=== PATIENT | male | born 1975 | race Caucasian/White ===

== ENCOUNTER 2020-09-02 18:50 | Emergency (ER) | payer BC, OTHER ==
--- NOTE | 2020-09-02 19:19 | ERPHSYRPT ---
- History of Present Illness Time Seen by Provider: 09/02/20 19:10 Source: patient Exam Limitations: no limitations Patient Subjective Stated Complaint: here for fever, cough, vomiting,aches Triage Nursing Assessment: pt alert , resp easy, skin w/d/p, face mask in place, Physician History: This is a 44-year-old white male with history of hypertension who presents with 1 day history of cough, body aches, vomiting symptoms. Symptoms are not improved. Patient denies shortness of breath and he denies chest pain. He is never been COVID-19 tested and has not been vaccinated. Timing/Duration: yesterday Cough Quality/Degree: mild, dry cough Possible Cause: no prior episodes Modifying Factors: Improves With: activity, coughing Associated Symptoms: cough, sore throat, No shortness of breath Allergies/Adverse Reactions: No Known Drug Allergies Allergy (Unverified 09/02/20 19:11) Home Medications: Atenolol/Chlorthalidone [Atenolol-Chlorthalidone 50-25] 1 ea DAILY 09/02/20 [History] Hx Influenza Vaccination/Date Given: No Hx Pneumococcal Vaccination/Date Given: No Immunizations Up to Date: Yes Travel Risk - International Travel Have you traveled outside of the country in past 3 weeks: No - Coronavirus Screening Are you exhibiting any of the following symptoms?: Yes Symptoms: Fever, Cough: New Onset, Shortness of Breath, Vomiting/Diarrhea, Headaches/Body Aches/Fatigue Close contact with a COVID-19 positive Pt in past 14-21 Days: No - Vaccine Status Have you recieved a Covid-19 vaccination: No - Review of Systems Constitutional: No Symptoms Eyes: No Symptoms Ears, Nose, & Throat: Throat Pain Respiratory: Cough, No Dyspnea Cardiac: No Chest Pain Abdominal/Gastrointestinal: Nausea, Vomiting, No Constipation Genitourinary Symptoms: No Symptoms Musculoskeletal: Arthralgias, Myalgias Skin: No Symptoms Neurological: No Symptoms Psychological: No Symptoms Endocrine: No Symptoms Hematologic/Lymphatic: No Symptoms Immunological/Allergic: No Symptoms All Other Systems: Reviewed and Negative - Past Medical History Pertinent Past Medical History: Yes Cardiac History: Hypertension Endocrine Medical History: Diabetes Type II - Past Surgical History Past Surgical History: Yes Other Surgical History: back - Social History Smoking Status: Current every day smoker Exposure to second hand smoke: Yes Drug Use: none Patient Lives Alone: No - Nursing Vital Signs Nursing Vital Signs: Initial Vital Signs Pulse Rate 77 09/02/20 19:07 Respiratory Rate 16 09/02/20 19:07 Blood Pressure 134/90 09/02/20 19:07 O2 Sat by Pulse Oximetry 98 09/02/20 19:07 Pain Scale Pain Intensity 3 - Physical Exam General Appearance: no apparent distress, alert, anxiety Eye Exam: PERRL/EOMI, eyes nml inspection Ears, Nose, Throat Exam: normal ENT inspection, TM abnormal (L) Neck Exam: normal inspection, non-tender, supple, full range of motion Respiratory Exam: normal breath sounds, lungs clear, airway intact, No chest tenderness, No respiratory distress Cardiovascular Exam: regular rate/rhythm, normal heart sounds, normal peripheral pulses Gastrointestinal/Abdomen Exam: soft, normal bowel sounds, No tenderness Rectal Exam: not done Back Exam: normal inspection, normal range of motion, vertebral tenderness, No CVA tenderness Extremity Exam: normal inspection, normal range of motion, No pelvis stable Neurologic Exam: alert, oriented x 3, cooperative, 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 No comparison EKG available) Ordered Tests: Active Orders 24 hr Category Date Time Status EKG-ER Only STAT Care 09/02/20 19:22 Active IV Insertion STAT Care 09/02/20 19:22 Active Isolation, Initiate & Maintain STAT Care 09/02/20 19:23 Active Pulse Oximetry (ED) STAT Care 09/02/20 19:22 Active CHEST 1 VIEW (PORTABLE) Stat Exams 09/02/20 19:22 Taken CHEST WITH CONTRAST [CT] Stat Exams 09/02/20 20:45 Taken BLOOD CULTURE Stat Lab 09/02/20 19:32 Received CBC W DIFF Stat Lab 09/02/20 19:30 Completed CMP Stat Lab 09/02/20 19:30 Completed D-DIMER QUANTITATIVE Stat Lab 09/02/20 19:30 Completed Ferritin Stat Lab 09/02/20 19:30 Completed INFLUENZA A+B ADDI Stat Lab 09/02/20 19:30 Completed LDH-LACTATE DEHYDROGENASE Stat Lab 09/02/20 19:30 Completed Lactic Acid Stat Lab 09/02/20 19:45 Completed Mccone Screen Stat Lab 09/02/20 19:30 Completed UA W/RFX UR CULTURE Stat Lab 09/02/20 19:22 Ordered Medication Summary Generic Name Dose Route Start Last Admin Trade Name Freq PRN Reason Stop Dose Admin Sodium Chloride 1,000 mls @ 999 mls/hr 09/02/20 20:58 09/02/20 21:25 Sodium Chloride 0.9% 1000 Ml IV 09/02/20 21:58 999 mls/hr .Q1H1M STA Administration Discontinued Medications Generic Name Dose Route Start Last Admin Trade Name Freq PRN Reason Stop Dose Admin Sodium Chloride 1,000 mls @ 999 mls/hr 09/02/20 19:22 09/02/20 20:58 Sodium Chloride 0.9% 1000 Ml IV 09/02/20 20:22 Infused .Q1H1M STA Infusion Sodium Chloride Confirm 09/02/20 19:45 Sodium Chloride 0.9% 1000 Ml Administered 09/02/20 19:46 Dose 1,000 mls @ ud .ROUTE .STK-MED ONE Sodium Chloride Confirm 09/02/20 21:23 Sodium Chloride 0.9% 1000 Ml Administered 09/02/20 21:24 Dose 1,000 mls @ ud .ROUTE .STK-MED ONE Ondansetron HCl 4 mg 09/02/20 19:22 09/02/20 19:46 Zofran 4 Mg/2 Ml Vial IV 09/02/20 19:23 4 mg STAT STA Administration Ondansetron HCl Confirm 09/02/20 19:45 Zofran 4 Mg/2 Ml Vial Administered 09/02/20 19:46 Dose 4 mg .ROUTE .STK-MED ONE Lab/Rad Data: Laboratory Result Diagrams 09/02/20 19:30 09/02/20 19:30 Laboratory Results 09/02/20 09/02/20 09/02/20 Range/Units 19:45 19:30 19:30 WBC (4.0-10.5) K/mm3 RBC (4.1-5.6) M/mm3 Hgb (12.5-18.0) gm/dl Hct (42-50) % MCV (78-100) fl MCH (26-32) pg MCHC (32-36) g/dl RDW (11.5-14.0) % Plt Count (150-450) K/mm3 MPV (7.5-11.0) fl Gran % (36.0-66.0) % Eos # (Auto) (0-0.5) Absolute Lymphs (auto) (1.0-4.6) Absolute Monos (auto) (0.0-1.3) Lymphocytes % (24.0-44.0) % Monocytes % (0.0-12.0) % Eosinophils % (0.00-5.0) % Basophils % (0.0-0.4) % Absolute Granulocytes (1.4-6.9) Basophils # (0-0.4) D-Dimer 1165 H* (215-500) ng/mL Sodium (137-145) mmol/L Potassium (3.5-5.1) mmol/L Chloride (98-107) mmol/L Carbon Dioxide (22-30) mmol/L Anion Gap (5-15) MEQ/L BUN (9-20) mg/dL Creatinine (0.66-1.25) mg/dL Estimated GFR ML/MIN Glucose (74-106) mg/dL Lactic Acid 1.6 (0.4-2.0) Calcium (8.4-10.2) mg/dL Ferritin (17.9-464) ng/mL Total Bilirubin (0.2-1.3) mg/dL AST (17-59) U/L ALT (0-50) U/L Alkaline Phosphatase (38-126) U/L Lactate Dehydrogenase (120-246) U/L Serum Total Protein (6.3-8.2) g/dL Albumin (3.5-5.0) g/dL Monoscreen POSITIVE (Negative) Influenza Type A Ag (NEGATIVE) Influenza Type B Ag (NEGATIVE) Group A Strep Antibody (NEGATIVE) Slides for Path Review 09/02/20 09/02/20 09/02/20 Range/Units 19:30 19:30 19:30 WBC 12.7 H (4.0-10.5) K/mm3 RBC 5.71 H (4.1-5.6) M/mm3 Hgb 17.1 (12.5-18.0) gm/dl Hct 50.5 H (42-50) % MCV 88.4 (78-100) fl MCH 29.9 (26-32) pg MCHC 33.9 (32-36) g/dl RDW 13.3 (11.5-14.0) % Plt Count 197 (150-450) K/mm3 MPV 11.6 H (7.5-11.0) fl Gran % 90.5 H (36.0-66.0) % Eos # (Auto) 0.10 (0-0.5) Absolute Lymphs (auto) 0.53 L (1.0-4.6) Absolute Monos (auto) 0.54 (0.0-1.3) Lymphocytes % 4.2 L (24.0-44.0) % Monocytes % 4.3 (0.0-12.0) % Eosinophils % 0.8 (0.00-5.0) % Basophils % 0.2 (0.0-0.4) % Absolute Granulocytes 11.50 H (1.4-6.9) Basophils # 0.02 (0-0.4) D-Dimer (215-500) ng/mL Sodium 132 L (137-145) mmol/L Potassium 3.4 L (3.5-5.1) mmol/L Chloride 93 L (98-107) mmol/L Carbon Dioxide 31 H (22-30) mmol/L Anion Gap 12.1 (5-15) MEQ/L BUN 19 (9-20) mg/dL Creatinine 0.77 (0.66-1.25) mg/dL Estimated GFR > 60.0 ML/MIN Glucose 375 H (74-106) mg/dL Lactic Acid (0.4-2.0) Calcium 9.1 (8.4-10.2) mg/dL Ferritin 106 (17.9-464) ng/mL Total Bilirubin 0.90 (0.2-1.3) mg/dL AST 19 (17-59) U/L ALT 24 (0-50) U/L Alkaline Phosphatase 107 (38-126) U/L Lactate Dehydrogenase 113 L (120-246) U/L Serum Total Protein 6.5 (6.3-8.2) g/dL Albumin 3.9 (3.5-5.0) g/dL Monoscreen (Negative) Influenza Type A Ag (NEGATIVE) Influenza Type B Ag (NEGATIVE) Group A Strep Antibody NOT DETECTED (NEGATIVE) Slides for Path Review YES 09/02/20 Range/Units 19:30 WBC (4.0-10.5) K/mm3 RBC (4.1-5.6) M/mm3 Hgb (12.5-18.0) gm/dl Hct (42-50) % MCV (78-100) fl MCH (26-32) pg MCHC (32-36) g/dl RDW (11.5-14.0) % Plt Count (150-450) K/mm3 MPV (7.5-11.0) fl Gran % (36.0-66.0) % Eos # (Auto) (0-0.5) Absolute Lymphs (auto) (1.0-4.6) Absolute Monos (auto) (0.0-1.3) Lymphocytes % (24.0-44.0) % Monocytes % (0.0-12.0) % Eosinophils % (0.00-5.0) % Basophils % (0.0-0.4) % Absolute Granulocytes (1.4-6.9) Basophils # (0-0.4) D-Dimer (215-500) ng/mL Sodium (137-145) mmol/L Potassium (3.5-5.1) mmol/L Chloride (98-107) mmol/L Carbon Dioxide (22-30) mmol/L Anion Gap (5-15) MEQ/L BUN (9-20) mg/dL Creatinine (0.66-1.25) mg/dL Estimated GFR ML/MIN Glucose (74-106) mg/dL Lactic Acid (0.4-2.0) Calcium (8.4-10.2) mg/dL Ferritin (17.9-464) ng/mL Total Bilirubin (0.2-1.3) mg/dL AST (17-59) U/L ALT (0-50) U/L Alkaline Phosphatase (38-126) U/L Lactate Dehydrogenase (120-246) U/L Serum Total Protein (6.3-8.2) g/dL Albumin (3.5-5.0) g/dL Monoscreen (Negative) Influenza Type A Ag NEGATIVE (NEGATIVE) Influenza Type B Ag NEGATIVE (NEGATIVE) Group A Strep Antibody (NEGATIVE) Slides for Path Review - Progress Progress: improved, re-examined Air Movement: good Progress Note: 09/02/20 21:04 Chest x-ray shows no acute cardiopulmonary process. Clinically, patient states that he is slowly improving. He states that if at all possible he would like to go home. 09/02/20 21:55 CAT scan of the chest with contrast shows no pulmonary embolism. There is no acute cardiopulmonary findings. There is some distal esophageal wall thickening. Blood Culture(s) Obtained: Yes Counseled pt/family regarding: lab results, diagnosis, need for follow-up, rad results - Departure Departure Disposition: Home Clinical Impression: Vomiting, Mononucleosis, Esophagitis Condition: Stable Critical Care Time: No Referrals: JEANCARLOS MENARD [Primary Care Provider] - Additional Instructions: Drink plenty of fluids. Avoid fatty greasy spicy foods. Quarantine yourself until you get the results of your COVID-19 test back. Follow-up with your primary care physician to further evaluate your distal esophagus thickening. Take your medications as prescribed. Prescriptions: Ondansetron ODT 4 MG [Zofran Odt 4 mg] 4 mg PO Q6H PRN PRN #10 tab.rapdis PRN Reason: Vomiting Pantoprazole 20 mg [Protonix 20MG Tablet] 20 mg PO DAILY #10 tab
[2020-09-02] MEDS ORDERED: Zofran 4 MG/2 ML VIAL IV STA (19:22)
[2020-09-02] MEDS ORDERED: Sodium Chloride 0.9% 1000 ML 1,000 ML IV STA ×2 (19:22→20:58)
[2020-09-02 19:40] LABS: BASOPHIL % 0.2 % (0.0-0.4); Basophil (Absolute #) 0.02 (0-0.4); Eosinophil % 0.8 % (0.00-5.0); Hematocrit 50.5 % (42-50); Hemoglobin 17.1 gm/dl (12.5-18.0); Lymphocyte (Absolute #) 0.53 (1.0-4.6); Lymphocytes % 4.2 % (24.0-44.0); Mean Cell Volume 88.4 fl (78-100); Mean Corpuscular Hemoglobin 29.9 pg (26-32); Mean Corpuscular Hgb Concent. 33.9 g/dl (32-36); Mean Platelet Volume 11.6 fl (7.5-11.0); Monocyte (Absolute #) 0.54 (0.0-1.3); Monocytes % 4.3 % (0.0-12.0); Neutrophil % 90.5 % (36.0-66.0); Platelet Count 197 K/mm3 (150-450); Red Blood Count 5.71 M/mm3 (4.1-5.6); Red Cell Distribution Width 13.3 % (11.5-14.0); White Blood Count 12.7 K/mm3 (4.0-10.5)
[2020-09-02] MEDS ORDERED: Sodium Chloride 0.9% 1000 ML 1,000 ML ONE ×2 (19:45→21:23)
[2020-09-02] MEDS ORDERED: Zofran 4 MG/2 ML VIAL ONE (19:45)
[2020-09-02 19:59] LABS: INFLUENZA A NEGATIVE (NEGATIVE); INFLUENZA B NEGATIVE (NEGATIVE)
[2020-09-02 20:17] LABS: Slide Review 1 YES
[2020-09-02 20:28] LABS: ALBUMIN 3.9 g/dL (3.5-5.0); ALKALINE PHOSPHATASE 107 U/L (38-126); ANION GAP 12.1 MEQ/L (5-15); BLOOD UREA NITROGEN 19 mg/dL (9-20); CHLORIDE 93 mmol/L (98-107); Calcium 9.1 mg/dL (8.4-10.2); Carbon Dioxide 31 mmol/L (22-30); Creatinine 1 0.77 mg/dL (0.66-1.25); EST GLOMERULAR FILTRATION RATE > 60.0 ML/MIN; Ferritin 106 ng/mL (17.9-464); Glucose 375 mg/dL (74-106); LDH-LACTATE DEHYDROGENASE 113 U/L (120-246); Potassium 3.4 mmol/L (3.5-5.1); SGOT/AST 19 U/L (17-59); SGPT/ALT 24 U/L (0-50); SODIUM 132 mmol/L (137-145); Total Protein 6.5 g/dL (6.3-8.2)
[2020-09-02 21:05] VITALS: O2SAT 98
[2020-09-02 22:04] VITALS: BP 127/86; PULSE 60
--- NOTE | 2020-09-03 08:40 | XRAY ---
Indication: Cough. Emesis. Comparison: None Portable chest demonstrates normal heart, lungs, and bony thorax.
--- NOTE | 2020-09-03 08:40 | XRAY ---
Indication: Cough, short of breath, and emesis. Hypertension. Mononucleosis. Multiple contiguous images obtained through the chest using 100 cc Isovue 370 contrast and PE protocol. Comparison: None There is good opacification of the pulmonary arteries to include the lobar and segmental branches. No pulmonary embolus. Heart is not enlarged. Aorta is normal in course and caliber. No pathologic mediastinal/hilar lymphadenopathy. Distal esophagus demonstrates circumferential wall thickening, possible esophagitis. Lungs demonstrate mild bilateral dependent atelectasis. No suspicious pulmonary mass, infiltrate, consolidation, or effusion. Bony thorax intact. Limited upper abdomen demonstrate mild fatty liver. Impression: 1. Negative pulmonary embolus. No acute cardiopulmonary abnormalities. 2. Distal esophageal circumferential wall thickening. Rule out esophagitis. 3. Incidental fatty liver.
== END 2020-09-02 22:19 | disposition home or self-care (01) ==
LOC: ED 18:50
DX: R11.10 Vomiting, unspecified (principal); B27.90 Infectious mononucleosis, unspecified without complication; K20.90 Esophagitis, unspecified without bleeding
CPT/HCPCS: 36000; 36415; 71045; 71260; 80053; 82728; 83605; 83615; 85025; 85379; 86308; 87040; 87400; 87651; 93005; 94760; 96360; 96361; 96374; 99284; U0003; J2405